=== PATIENT | female | born 1970 | race African-American/Black ===

== ENCOUNTER → 2016-07-26 | Outpatient (CLI) | payer OTHER ==
--- NOTE | 2016-07-26 07:59 | RAD ---
EXAM: Grayscale and color Doppler renal artery. HISTORY: Renal insufficiency. TECHNIQUE: Grayscale and color Doppler sonographic imaging of the renal arteries was spectral waveform analysis was performed. COMPARISON: None. FINDINGS: The right kidney measures 8.9 cm [id number] and the left kidney measures 9.6 cm [id number]. No solid or cystic renal lesion is seen. There is no hydronephrosis. The bladder is not assessed. The peak systolic velocities within the proximal, mid and distal right renal artery are 93 cm/s, 96 cm/s, and 94 cm/s, respectively. The peak systolic velocities within the proximal, mid and distal left renal artery are 94 cm/s, 73 cm/s, and 87 cm/s, respectively. IMPRESSION: 1. No Doppler evidence of hemodynamically significant stenosis within the renal arteries. 2. Slight decreased right renal size. This may be developmental, due to measurement error or mild atrophy.
--- NOTE | 2016-07-26 09:30 | RAD ---
PROCEDURE MRI lumbar spine without contrast HISTORY Low back pain with right leg radiculopathy for 2 weeks TECHNIQUE Sagittal and axial T1 and T2 and sagittal STIR images were acquired of the lumbar spine. Contrast: None COMPARISON None FINDINGS Lumbar vertebral body stature and AP alignment are preserved. Conus terminates at L2. Focus of marrow signal abnormality of the T12 vertebral body is likely a hemangioma. Otherwise there is no focal marrow edema. Intervertebral disc spaces are relatively preserved, mild disc desiccation L4-5. L2-3: Spinal canal and neural foramina are adequate. There is a hemangioma of the right L2 vertebral body. L3-4: Spinal canal and neural foramina are adequate. There is mild facet hypertrophic change. L4-5: There is mild facet hypertrophic change. Best seen on the T1 weighted images, there is shallow signal abnormality extending in the far right lateral recess and anterior right neural foramen on the order of 1.4 cm transverse by 0.5 cm AP by 0.9 cm cc. There is resultant moderate to severe narrowing of the right neural foramen greater proximally, contact of the ventral surface exiting right L4 nerve root. There is mild narrowing of the left neural foramen. Spinal canal is overall adequate. L5-S1: Spinal canal and the neural foramina are adequate. There is moderate to severe right and moderate left facet degenerative change. IMPRESSION 1. There is narrowing of the anterior right L4-5 neural foramen by apparent extrusion extending above the intervertebral disc space, better seen on the T1 weighted images. There is contact of the ventral surface of the exiting right L4 nerve root. There is no significant lumbar spinal stenosis. 2. There is multilevel lumbar facet degenerative change. Electronically signed by: Kaleb Flores MD (Jul 26, 2016 09:29:43)
== END | disposition home or self-care (01) ==
LOC: US 06:59
PROVIDERS: ATTEND Family Medicine
DX: N18.3 Chronic kidney disease, stage 3 (moderate) (principal); M54.16 Radiculopathy, lumbar region; M48.06 Spinal stenosis, lumbar region; M47.896 Other spondylosis, lumbar region; D18.09 Hemangioma of other sites
CPT/HCPCS: 72148; 93975

== ENCOUNTER → 2016-08-06 | Outpatient (CLI) | payer OTHER ==
[~2016-08-06] MED LIST: LISI1TAB3 PO; OXYC-323 PO
--- NOTE | 2016-08-07 00:43 | PAIN ---
DATE OF SERVICE: 08/06/2016 INITIAL CONSULTATION CHIEF COMPLAINT: Back and right lower extremity pain. HISTORY OF PRESENT ILLNESS: This is a 46-year-old female who presents with history of pain for about 3 weeks, suddenly increasing after she picked up her grandchildren from a bathtub leaning over forward and then picking them up, had a sudden increase in pain in the low back radiating to the right leg, mostly in the anterolateral thigh, medial thigh, into the medial lower leg, into the foot and into the big toe with numbness and decreased strength and pain is becoming much more noticeable over the past 3 weeks. The patient reports no significant pain in the low back or leg before this incident. The patient reports that it is much more weak with walking, much more painful with walking and standing, change in positions, wakens her from sleep at least 3-4 times at night, affects her ability to walk significantly. She is walking with a significant limp favoring her right lower extremity. Reports it does affect her bowel or bladder control and that she feels that she has greater urgency, but no actual loss of continence. The patient did have MRI scan of the lumbar spine showing narrowing of the anterior right L4-L5 neural foramen by apparent extrusion extending above the intervertebral disk space with contacts to ventral surface of the exiting right L4 nerve root without significant stenosis. The patient reports that it is much worse with standing, walking or putting all of her weight on her right side such as climbing stairs or stepping up of a curb, but no complete loss of function, but significant numbness and fatigability even after walking about 10-20 feet with the right leg compared to the left. PAST MEDICAL HISTORY: Significant for hypertension, arthritis, headaches, kidney stones and seasonal allergies. PREVIOUS SURGERIES: Include laparoscopic cholecystectomy, lithotripsy, hysterectomy and tubal ligation. CURRENT MEDICATIONS: Include Percocet and lisinopril. ALLERGIES: The patient has no known drug allergies. FAMILY HISTORY: Significant for no major medical problems or conditions that she is aware of. SOCIAL HISTORY: The patient does not drink alcohol, does not smoke, is single and lives in [facility]. REVIEW OF SYSTEMS: The patient's review of systems is positive for those items mentioned in the history of present illness. All systems reviewed and otherwise negative. It is complete, full and well documented on the patient's chart. PHYSICAL EXAMINATION: VITAL SIGNS: The patient's blood pressure is 198/110, pulse 59, respirations 18, temperature 98.3 degrees Fahrenheit, height is 5 feet 3 inches and weighs 169 pounds. GENERAL: The patient is awake, alert, oriented, appropriate, very pleasant demeanor. HEENT: Shows normocephalic, atraumatic. Extraocular movements are intact and symmetrical. Oral cavity shows mucous membranes are moist and pink. Dentition is intact. NECK: Shows anterior throat supple without palpable lymphadenopathy noted. Swallow reflex is symmetrical. Neck shows full rotation and motion of cervical spine, both laterally as well as extension and flexion without difficulty or tenderness. CHEST: Shows normal on inspection. Breath sounds are clear to auscultation bilaterally. HEART: Shows S1 and S2 clear. No murmurs are auscultated. ABDOMEN: The patient's abdomen is soft, nontender, nondistended. No palpable organomegaly is noted. No rebound or guarding demonstrated. It is normal on inspection. BACK: Shows spine grossly in midline, normal-appearing cervical lordotic curvature, thoracic kyphotic curvature, and lumbar lordotic curvature. No previous bruises, lesions, rashes or scars are noted. Lumbar paraspinous muscle shows some moderate tenderness to palpation only in the low lumbar distribution, diffusely, slightly more on the right than the left, but is symmetrical without evidence of atrophy, hypertrophy on inspection. No trigger points. No radiation of pain. No tenderness over the sacrum or the sacroiliac regions. No tenderness over the spinous processes throughout the lumbar spine. The patient does show good rotation and motion both laterally greater than 10 degrees right as well as extension greater than 10 degrees, forward flexion at 45 degrees without significant increase in pain. EXTREMITIES: Lower extremities show deep tendon reflexes at 1+ in the patellar and tendo calcaneus tendons, are equal. Motor exam is approximately 3-4 on a scale 5 in the right lower extremity and 5/5 on the left with dorsiflexion, extension, quadriceps and hamstring flexion. Peripheral pulses are 2+ in the posterior tibial and dorsalis pedis pulses. No peripheral edema is noted. No clubbing, no cyanosis. Lower extremities are warm and dry to touch, equal in color and appearance. Straight leg raise noted to be positive on the right at about 40 degrees, negative on the left and is decreased with knee flexion, but not completely relieved the right side. The patient is able to stand, stand on her toes, but loses balance quickly with putting all of her weight on her right leg, is walking with a significant limping gait favoring the right lower extremity significantly. The patient does not use any assistive devices such as canes or walkers and is holding on to wall and handrails as much as she can to steady herself. IMPRESSION: 1. This is a 46-year-old female with approximately3-week history of increasing pain after lifting grandchild from bathtub with radicular pain in the right lower extremity as noted and clear L4 distribution on the right side. 2. MRI scan as noted. 3. Hypertension. 4. Arthritis. PLAN: Options were discussed with the patient including conservative medical management, physical therapy, interventional techniques. She would like to pursue interventional techniques as she is already doing some stretching and strengthening exercises on her own, mostly stretching in the mornings, which says has not been helping the back or the leg pain significantly. We discussed lumbar epidural steroid injection using description as well as anatomical models to describe the procedure. We will wait for preauthorization with the patient's insurance provider and would try Medrol Dosepak in the meantime. The patient was given instruction as well as side effects to be aware with medication. Also discussed her blood pressure. She is on lisinopril, but has not taken it over the past 2 days. We discussed this as well and if it does not come down, to check with her primary care physician once again. She acknowledges this and will do so if necessary. The patient will follow up in approximately one week. We will plan on lumbar epidural steroid injection at that time. BROOKS TORRES MD DR: LORENZO/ritu JOB#: [id number] / [id number]
== END | disposition home or self-care (01) ==
LOC: PNCL 08:05
PROVIDERS: ATTEND Anesthesiology
DX: M54.2 Cervicalgia (principal); M79.604 Pain in right leg
CPT/HCPCS: 99214

== ENCOUNTER → 2016-08-22 | Outpatient (CLI) | payer OTHER ==
[2016-08-12 11:52] VITALS: BP 153/87
[~2016-08-22] MED LIST changes: +ACET325T9 PO; +CLON0.5T3 PO; +ISOS1TAB2 PO; +LISI1TAB7 PO; +METH-38 PO; +SENN1TAB7 PO
[2016-08-22 15:28] LABS: BASO % 1 % (0-3); EOS % 2 % (0-3); HEMATOCRIT 37.3 % (36.0-47.0); HEMOGLOBIN 12.3 g/dL (12.0-15.5); LYMPH # 2.3 x10^3/uL (1.0-4.8); LYMPH % 34 % (24-48); MEAN CORPUSCULAR HEMOGLOBIN 28 pg (25-35); MEAN CORPUSCULAR HGB CONC 33 g/dL (31-37); MEAN CORPUSCULAR VOLUME 85 fL (79-100); MONO % 3 % (0-9); NEUT % 60 % (31-73); PLATELET COUNT 401 x10^3/uL (140-400); RED BLOOD COUNT 4.37 x10^6/uL (3.50-5.40); RED CELL DISTRIBUTION WIDTH 13.7 % (11.5-14.5); WHITE BLOOD COUNT 6.7 x10^3/uL (4.0-11.0)
[2016-08-22 15:50] LABS: ALBUMIN 3.6 g/dL (3.4-5.0); ALBUMIN/GLOBULIN RATIO 0.8 (1.0-1.7); CREATININE 1.1 mg/dL (0.6-1.0); GFR 64.4; POTASSIUM 3.2 mmol/L (3.5-5.1); TOTAL BILIRUBIN 0.4 mg/dL (0.2-1.0)
== END | disposition home or self-care (01) ==
LOC: SURGPAT 13:21
PROVIDERS: ATTEND Neurological Surgery
DX: M51.26 Other intervertebral disc displacement, lumbar region (principal); M48.06 Spinal stenosis, lumbar region
CPT/HCPCS: 36415; 80053; 85027; 85610; 85730; 87641

== ENCOUNTER 2016-08-28 06:57 | Observation (INO) | payer OTHER ==
[~2016-08-28] VITALS: Ht 160 cm; Wt 77.6 kg
[2016-08-28] VITALS (8 sets, daily range): BP systolic 108–161; BP diastolic 57–90
[~2016-08-28 06:57] MED LIST changes: +BACITRACIN 50,000 UNIT in IV NORMAL SALINE 1000ML BAG 1,000 ML IRR ONE; +CEFAZOLIN 2GM PREMIX 50 ML IV ONE; -METH-38 PO; -SENN1TAB7 PO
[2016-08-28] MEDS ORDERED: ONDANSETRON PF 4 MG/2 ML VIAL. IV PRN ×2 (07:00→14:30)
[2016-08-28] MEDS ORDERED: FENTANYL PF 100 MCG/2 ML VIAL. IV PRN ×3 (07:00→14:30)
[2016-08-28] MEDS ORDERED: IV RINGERS,LACTATED 1000ML 1,000 ML IV SCH (07:00)
[2016-08-28] MEDS ORDERED: PROCHLORPERAZINE 10 MG/2 ML VIAL. IV PRN (07:00)
[2016-08-28] MEDS ORDERED: HYDROMORPHONE 2 MG/ML VIAL. IV PRN (07:00)
[2016-08-28] MEDS ORDERED: LIDOCAINE 1% 1 ML SYRINGE. ID PRN (07:00)
[2016-08-28] MEDS ORDERED: ACETAMINOPHEN INTRAVENOUS 100 ML IV ONE ×2 (07:25→07:30)
[2016-08-28] MEDS ORDERED: CEFAZOLIN 2GM PREMIX 50 ML IV PRN (08:00)
[2016-08-28] MEDS ORDERED: REMIFENTANIL 2 MG VIAL. IV ONE (08:13)
[2016-08-28] MEDS ORDERED: FENTANYL PF 100 MCG/2 ML VIAL. ONE (08:13)
[2016-08-28] MEDS ORDERED: MIDAZOLAM HCL 2 MG/2 ML VIAL. ONE (08:13)
[2016-08-28] MEDS ORDERED: ROCURONIUM 50 MG/5 ML VIAL. ONE (08:14)
[2016-08-28] MEDS ORDERED: GLYCOPYRROLATE 1 MG/5 ML VIAL. ONE (08:14)
[2016-08-28] MEDS ORDERED: DEXAMETHASONE SOD PHOS 20 MG/5 ML VIAL. ONE (08:15)
[2016-08-28] MEDS ORDERED: PROPOFOL 20 ML IV ONE (08:15)
[2016-08-28] MEDS ORDERED: LIDOCAINE 2% 100 MG/5 ML DISP.SYRIN. ONE (08:15)
[2016-08-28] MEDS ORDERED: PROPOFOL 50 ML IV ONE ×2 (08:15→10:04)
[2016-08-28] MEDS ORDERED: DESFLURANE > 120 MINUTES IH ONE (08:15)
[2016-08-28] MEDS ORDERED: PHENYLEPHRINE 10 MG/ML VIAL. ONE (08:15)
[2016-08-28] MEDS ORDERED: ONDANSETRON PF 4 MG/2 ML VIAL. ONE (08:15)
[2016-08-28] MEDS ORDERED: GELATIN SPONGE SIZE 100. ONE (08:17)
[2016-08-28] MEDS ORDERED: THROMBIN 20,000 UNIT SPRAY.SYRN KIT TP ONE (08:17)
[2016-08-28] MEDS ORDERED: LIDOCAINE 1%/EPI 1:100,000 20 ML VIAL. ONE (08:17)
[2016-08-28] MEDS ORDERED: BUPIVACAINE 0.5% 50 ML VIAL. INJ ONE (08:30)
--- NOTE | 2016-08-28 11:14 | PDOC ---
BRIEF OPERATIVE NOTE Date: Aug 28, 2016 Pre-Op Diagnosis lumbar disk herniation, lumbar radiculopathy, weakness Post-Op Diagnosis same Procedure Performed right L4-5 hemilaminotomy with discectomy Surgeon Suri Flask Pusher none Anesthesia Type: General Blood Loss 25mL Specimens Obtained disk and decompression Findings disk herniation right lateral recess into foramen at L4-5 Complications none apparent Additional Remarks neuromonitoring remained at least baseline throughout the procedure OUSMANE ASCENCIO MD Aug 28, 2016 11:14
--- NOTE | 2016-08-28 11:20 | DISCH ---
DISCHARGE INSTRUCTIONS Condition on Discharge Condition on Discharge: Stable Activity After Discharge Activity Instructions for Disc: Avoid exertion, Progressive ambulation Bathing Instructions: Shower-keep dressing dry, No Tub Bath until see Lifting Instructions after Dis: No pulling or pushing, Do not lift >10 pounds, Add. restrict see below (avoid strenuous activity, avoid excess twisting or bending, no lifting more than 10lbs) Wound Incision Care Wound/Incision Care: Other, see below (may remove dressing day 3 after surgery , may cover with breathable gauze and tape if needed thereafter; keep incision clean and dry; do no soak, scrub, or submerge incision) Contacting the after DC Call your doctor for: Concerns you may have Follow-Up Follow up with: Dr. Ascencio in two weeks [phone] OUSMANE ASCENCIO MD Aug 28, 2016 11:20
[2016-08-28] MEDS: FENTANYL PF 100 MCG/2 ML VIAL. IV PRN ×4 (11:33→11:57)
[2016-08-28] MEDS: MORPHINE SULFATE 2 MG/ML DISP.SYRIN. IV PRN ×4 (12:06→13:36)
[2016-08-28] MEDS ORDERED: OXYCODONE/APAP 5/325 TABLET. PO ONE (13:15)
[2016-08-28] MEDS ORDERED: METH-38 PO (13:24)
[2016-08-28] MEDS ORDERED: OXYC-323 PO (13:24)
[2016-08-28] MEDS ORDERED: SENN1TAB7 PO (13:25)
[2016-08-28] MEDS ORDERED: MAGNESIUM HYDROXIDE 2,400 MG/30 ML ORAL.SUSP. PO PRN (14:30)
[2016-08-28] MEDS ORDERED: CALCIUM CARBONATE 500 MG TAB.CHEW PO PRN (14:30)
[2016-08-28] MEDS ORDERED: OXYCODONE/APAP 5/325 TABLET. PO PRN ×2 (14:30)
[2016-08-28] MEDS ORDERED: DIPHENHYDRAMINE 50 MG/ML VIAL IV PRN (14:30)
[2016-08-28] MEDS ORDERED: ZOLPIDEM 5 MG TABLET. PO PRN (14:30)
[2016-08-28] MEDS ORDERED: DIPHENHYDRAMINE HCL 25 MG CAPSULE PO PRN (14:30)
[2016-08-28] MEDS ORDERED: 0.9 % SODIUM CHLORIDE 10 ML DISP.SYRIN. IV PRN (14:30)
[2016-08-28] MEDS ORDERED: MAG HYDROX/ALUMINUM HYDROX/SMC 30 ML ORAL.SUSP PO PRN (14:30)
[2016-08-28] MEDS ORDERED: NALOXONE 0.4 MG/ML VIAL. IV PRN (14:30)
[2016-08-28] MEDS: CALCIUM CARB/VIT D3 500/200 TABLET PO SCH (17:05)
[2016-08-28] MEDS: ISOSORBIDE DINITRATE 10 MG TABLET. PO SCH ×2 (17:05→21:10)
[2016-08-28] MEDS: HYDRALAZINE 25 MG TABLET PO SCH ×2 (17:05→21:11)
[2016-08-28] MEDS: FERROUS SULFATE 325 MG TABLET PO SCH (17:05)
--- NOTE | 2016-08-28 18:02 | OP ---
DATE OF SURGERY: 08/28/2016 SURGEON: Corbin Ascencio M.D. LICENSED DISPENSING OPTICIAN: None. PREOPERATIVE DIAGNOSES: Lumbar disk herniation, lumbar radiculopathy weakness. PROCEDURE: Right lumbar 4-5 hemilaminotomy with diskectomy with intraoperative neuro monitoring. ANESTHESIA: General. COMPLICATIONS: None intraprocedurally. INDICATIONS FOR THE PROCEDURE: The patient is a 46-year-old female with some right lower extremity pain with some developing weakness in her ankle who was noted to have a lumbar disk herniation in the right lateral recess at lumbar 4-5 extending to the region of the neural foramen. Based on her complaints, physical exam findings, radiography was felt appropriate that the right lumbar 4-5 decompression diskectomy would be beneficial. Please refer to the patient chart for additional details. DESCRIPTION OF PROCEDURE: After informed consent was obtained, the patient was brought into the operating room. She was placed under general anesthesia. She was placed in the prone position on the Erick frame. All pressure points were checked and padded appropriately. Neuro monitoring was instituted and baseline potentials were obtained. The lumbar region was prepped and draped in the usual sterile fashion. Fluoroscopy was utilized to localize an appropriate incision location. A vertical incision centered over the region of lumbar 4-5 was made with a 10 blade scalpel. Monopolar electrocautery was utilized to dissect the avascular midline to the spinous processes of lumbar 4 and lumbar 5 and rightward across the lamina at these locations. Level was again verified with fluoroscopy prior to the initiation of decompression a right hemilaminotomy was performed at lumbar 4-5 utilizing pneumatic drill as well as Kerrison rongeur. The underlying ligament was dissected free from the thecal sac and removed with a Kerrison rongeur. Dissection was carried out in lateral recess and the bulging annulus was identified, the nerve hooks gently retracted medially and a small annulotomy was performed at the disk space at lumbar 4-5. This material emerged under some pressure at this location, this material was subsequently removed in a piecemeal fashion utilizing pituitary rongeur, gentle dissection with a blunt nerve hook and a [place] was utilized to tease disk material posterolaterally, again this was subsequently removed with pituitary rongeur. Some of the disk material was noted to have ____ slightly cephalad, this was teased out from under the annulus with a nerve hook and removed with pituitary rongeur. Upon completion of decompression and diskectomy, the neural elements were noted to be very well decompressed. This was verified with direct visualization as well as gentle palpation with a [place] and a Blanton ball. Pristine hemostasis was achieved with FloSeal, cottonoids and some use of bipolar electrocautery. The wound was generously irrigated with antibiotic irrigation prior to final closure, the muscles and fascia were then reapproximated with 0 Vicryl in simple interrupted fashion. Subcutaneous tissues were reapproximated with 2-0 Vicryl in interrupted inverted fashion and the skin was reapproximated with 4-0 Vicryl in a running subcuticular fashion. Mastisol and Steri-Strips were applied and the wound was dressed with Telfa and Tegaderm. At the end of procedure, all needle and sponge counts correct x 2. Neuro monitoring remained at least at baseline throughout the entire duration of the procedure. There were no intraprocedural complications apparent. The patient was subsequently extubated in the operating room and taken to recovery in stable condition. CORBIN ASCENCIO MD DR: ELVA/ritu JOB#: [id number] / [id number]
[2016-08-28] MEDS ORDERED: SENNOSIDES/DOCUSATE 8.6/50MG TABLET. PO SCH (21:00)
[2016-08-28] MEDS ORDERED: HYDRALAZINE HCL PO SCH (21:00)
[2016-08-28] MEDS ORDERED: ISOSORB DINIT PO SCH (21:00)
[2016-08-28] MEDS: DOCUSATE SODIUM 100 MG CAPSULE PO SCH (21:08)
[2016-08-28] MEDS: METHOCARBAMOL 750 MG TABLET PO SCH (21:08)
[2016-08-28] MEDS: SENNOSIDES/DOCUSATE 8.6/50MG TABLET. PO SCH (21:08)
[2016-08-28] MEDS: CLONAZEPAM 0.5 MG TABLET PO SCH (21:08)
[2016-08-28] MEDS: ACETAMINOPHEN 325 MG TABLET. PO PRN (21:11)
[2016-08-29 03:20] VITALS: BP 125/69
[2016-08-29] MEDS: ACETAMINOPHEN 325 MG TABLET. PO PRN (03:35)
[2016-08-29 06:38] VITALS: BP 138/76
[2016-08-29] MEDS: DOCUSATE SODIUM 100 MG CAPSULE PO SCH (08:33)
[2016-08-29] MEDS: CALCIUM CARB/VIT D3 500/200 TABLET PO SCH (08:33)
[2016-08-29] MEDS: METHOCARBAMOL 750 MG TABLET PO SCH (08:33)
[2016-08-29] MEDS: SENNOSIDES/DOCUSATE 8.6/50MG TABLET. PO SCH (08:33)
[2016-08-29] MEDS: FERROUS SULFATE 325 MG TABLET PO SCH (08:33)
[2016-08-29] MEDS: CLONAZEPAM 0.5 MG TABLET PO SCH (08:35)
[2016-08-29 08:36] VITALS: BP 138/76
[2016-08-29] MEDS: ISOSORBIDE DINITRATE 10 MG TABLET. PO SCH (08:36)
[2016-08-29] MEDS: HYDRALAZINE 25 MG TABLET PO SCH (08:36)
[2016-08-29] MEDS ORDERED: HYDROCHLOROTHIAZIDE 25 MG TABLET PO SCH (09:00)
[2016-08-29] MEDS ORDERED: MULTIVITAMIN with MINERAL TABLET. PO SCH (09:00)
[2016-08-29] MEDS ORDERED: NON FORMULARY ITEM (Lisinopril/Hydrochlorothiazide (Lisinopril-Hctz 20-25 Mg Tab) 1 TAB) PO SCH (09:00)
[2016-08-29] MEDS ORDERED: LISINOPRIL 20 MG TABLET PO SCH (09:00)
--- NOTE | 2016-08-29 09:23 | PDOC ---
SUBJECTIVE Subjective Reports resolution of right leg pain and increased ankle strength. Working with therapy. Denies acute complaints this AM. OBJECTIVE Vital Signs Vital Signs Date Time Temp Pulse Resp B/P Pulse Ox O2 Delivery O2 Flow Rate FiO2 08/29/16 08:36 82 138/76 08/29/16 08:36 82 138/76 08/29/16 08:34 82 138/76 08/29/16 06:38 98.5 82 18 138/76 97 Room Air 98.5 08/29/16 03:20 98.5 78 18 125/69 97 Room Air 98.5 08/28/16 23:00 98.6 97 18 108/57 96 Room Air 98.6 08/28/16 21:11 82 149/72 08/28/16 21:10 82 149/72 08/28/16 19:50 97.4 85 18 126/79 95 Room Air 97.4 08/28/16 19:45 Room Air 10.0 08/28/16 18:20 97.8 60 20 161/84 98 Room Air 97.8 08/28/16 18:00 88 16 133/78 08/28/16 17:05 91 133/84 08/28/16 17:05 91 133/84 08/28/16 17:04 16 08/28/16 17:00 91 16 133/84 08/28/16 16:00 68 16 130/83 08/28/16 15:30 Room Air 08/28/16 15:30 67 16 161/90 08/28/16 15:03 97.6 62 16 142/82 96 97.6 08/28/16 14:01 61 16 138/80 96 Room Air 08/28/16 13:33 65 13 121/81 93 Room Air 08/28/16 13:18 77 11 158/88 93 Room Air 08/28/16 13:03 84 16 140/87 95 Room Air 08/28/16 12:48 97.2 62 18 127/86 95 Room Air 97.2 08/28/16 12:33 66 14 155/89 94 Room Air 08/28/16 12:18 66 16 153/86 95 Room Air 08/28/16 12:17 16 95 Room Air 08/28/16 12:08 Room Air 08/28/16 12:06 18 95 Room Air 08/28/16 12:03 80 16 140/91 95 Room Air 08/28/16 11:57 18 99 Room Air 08/28/16 11:49 100 Room Air 10.0 08/28/16 11:48 74 18 147/89 99 Room Air 08/28/16 11:38 18 100 Room Air 10.0 08/28/16 11:33 62 16 159/95 100 Simple Mask 10 08/28/16 11:33 20 96 Simple Mask 10.0 08/28/16 11:18 97.5 89 14 152/95 100 Simple Mask 10 97.5 08/28/16 11:18 Mask 10 I & O Intake and Output 08/29/16 07:00 Intake Total 1760 ml Output Total 2175 ml Balance -415 ml Intake Oral 610 ml IV Total 1150 ml Output Urine Total 2150 ml Estimated Blood Loss 25 ml # Bowel Movements 1 PHYSICAL EXAM Physical Exam AAOx4, NAD, dressing with some ss stain, flat, POWERS now 5/5 in ankle, sensation intact LT ASSESSMENT/PLAN Assessment/Plan POD1 lumbar discectomy (right L4-5) -d/c home today with standard activity restrictions -follow up two weeks [phone] Problems: OUSMANE ASCENCIO MD Aug 29, 2016 09:23
--- NOTE | 2016-08-29 12:38 | PATHOLOGY ---
PATHOLOGY REPORT * * * * * * * * FINAL DIAGNOSIS: Segments of fibrocartilaginous, adipose, and skeletal muscle tissue and bone, right L4-5 disc and decompression: - Degenerative changes of fibrocartilaginous tissue. COMMENT: There is no evidence of an acute inflammatory process or malignancy. (JPM:csd; d/t: 08/29/2016) REPORT ELECTRONICALLY SIGNED BY: Azam Paez M.D. DATE/TIME: 08/29/2016 12:38 * * * * * * * * GROSS PATHOLOGY: Received in formalin labeled "Edson Rey - right lumbar 4-5 disc and decompression," are multiple segments of kee white rubbery and gritty tissue admixed with possible bone measuring 3.5 x 2.5 x 0.3 cm in aggregate dimensions. The tissue is submitted entirely in cassette A1, following decalcification. (TTL:JPM:csd; 08/28/2016) INITIAL CPT CODE(S): A; 65734, 47330 Professional services performed [place] [place] [address] Technical services performed by [facility] at [address] [place] [address] [address], [place] [address]. SPECIMEN(S) RECEIVED: A.Right lumbar 4-5 disc and decompression CLINICAL HISTORY: Lumbar herniated disc, lumbar spondylosis, low back pain, lumbar radiculopathy PATIENT: EDSON REY /AGE: 1105/31/1970 (Age: 46) PATIENT #: [id number] ALT CASE #: SPECIMEN COLLECTION DATE: 08/28/2016 SPECIMEN RECEIVED DATE: 08/28/2016 [facility] - [address] [place] [address] - PHONE: [phone] * * * END OF REPORT * * *
== END 2016-08-29 11:45 | disposition home or self-care (01) ==
LOC: SURG 06:57 → 4 SOUTHEST 14:15
PROVIDERS: ADMIT Neurological Surgery; ATTEND Neurological Surgery
DX: M51.16 Intervertebral disc disorders with radiculopathy, lumbar region (principal); R53.1 Weakness
CPT/HCPCS: 36415; 63030; 76000; 84132; 97161; 97165; 97530; G0378; G0379; G8978; G8979; G8980; G8987; G8988; G8989; J0131; J0690; J0780; J1100; J2250; J2270; J2405; J2704; J3010; J3490; J7030; 88304; 88311

== ENCOUNTER 2016-11-09 09:26 | Emergency (ER) | payer OTHER ==
[~2016-11-09 09:26] MED LIST changes: -BACITRACIN 50,000 UNIT in IV NORMAL SALINE 1000ML BAG 1,000 ML IRR ONE; -CEFAZOLIN 2GM PREMIX 50 ML IV ONE; +METH-38 PO; +SENN1TAB7 PO
--- NOTE | 2016-11-09 09:36 | PHYS DOC ---
Past Medical History Past Medical History: Hypertension Additional Past Medical Histor: L4 and L5 herniated disc, osteoporosis Past Surgical History: Cholecystectomy, Hysterectomy Additional Past Surgical Histo: lithotripsy Alcohol Use: Occasionally Drug Use: None Adult General HPI HPI Patient is a 46 year old female with history of hypertension who presents today with moderate low back pain that began today while at work. Patient states she was sitting at her desk when she developed severe back pain. Patient denies the pain radiating to bilateral lower extremities. Denies any loss of bowel bladder function. She states she had L4-L5 lumbar laminectomy done on August [address] Mccord. She states she was discharged with oxycodone which she still has. She states she only takes oxycodone at night. Patient denies any trauma. Review of Systems Review of Systems Constitutional: Denies fever or chills [] Eyes: Denies change in visual acuity, redness, or eye pain [] GI: Denies abdominal pain, nausea, vomiting, bloody stools or diarrhea [] : Denies dysuria or hematuria [] Musculoskeletal:back pain Integument: Denies rash or skin lesions [] Neurologic: Denies headache, focal weakness or sensory changes [] Endocrine: Denies polyuria or polydipsia [] Current Medications Current Medications Current Medications Medications (Trade) Dose Ordered Sig/Jason Start Time Stop Time Status Last Admin Dose Admin Cyclobenzaprine HCl (Flexeril) 10 mg 1X ONCE 11/09/16 09:30 11/09/16 09:31 UNV Oxycodone/ Acetaminophen (Percocet 5/325) 2 tab 1X ONCE 11/09/16 09:30 11/09/16 09:31 UNV Allergies Allergies Allergies Coded Allergies Type Severity Reaction Last Updated Verified No Known Drug Allergies 08/28/16 No Physical Exam Physical Exam Constitutional: Well developed, well nourished, no acute distress, non-toxic appearance. [] Abdomen: Bowel sounds normal, soft, no tenderness, no masses, no pulsatile masses. [] Skin: Warm, dry, no erythema, no rash. [] Back: Well-healing surgical incision noted on the lumbar spine. Diffuse paraspinal muscle tenderness to bilateral low lumbar region, no midline tenderness, no CVA tenderness. [] Extremities: No tenderness, no cyanosis, no clubbing, ROM intact, no edema. [] Neurologic: Alert and oriented X 3, normal motor function, normal sensory function, no focal deficits noted. [] Psychologic: Affect normal, judgement normal, mood normal. [] EKG EKG [] Radiology/Procedures Radiology/Procedures [] Course & Med Decision Making Course & Med Decision Making Pertinent Labs and Imaging studies reviewed. (See chart for details) Patient is in the ED with exacerbation of low back pain. She had surgery on her lumbar spine on the August 2016. She already has oxycodone at home but she cannot take it when she is at work like today. She was given oxycodone in the ED and Flexeril. Discharged with instructions to follow-up with her own PCP and neurosurgeon. Dragon Disclaimer Dragon Disclaimer This electronic medical record was generated, in whole or in part, using a voice recognition dictation system. Departure Departure Impression: Primary Impression: Back pain Disposition: HOME, SELF-CARE Condition: STABLE Referrals: YUNIOR BROOKS MD (PCP) follow up with your primary doctor or your neurosurgeon as soon as you can Patient Instructions: Back Pain, Adult Additional Instructions: You were seen for exacerbation of chronic back pain. Take your pain medicines as prescribed by your doctor. Follow-up with your doctor as soon as you can. Come back to the ED if symptoms worsen. Problem Qualifiers Primary Impression: Back pain Back pain location: low back pain Chronicity: chronic Back pain laterality : bilateral Sciatica presence: without sciatica Qualified Code: M54.5 - Low back pain VIKRAM RAMOS APRN Nov 09, 2016 09:36
[2016-11-09] MEDS ORDERED: OXYCODONE/APAP 5/325 TABLET. PO ONE (09:45)
[2016-11-09] MEDS ORDERED: CYCLOBENZAPRINE 10 MG TABLET. PO ONE (09:45)
== END 2016-11-09 10:13 | disposition home or self-care (01) ==
LOC: ER 09:26
DX: M54.5 Low back pain (principal); I10 Essential (primary) hypertension; M81.0 Age-related osteoporosis without current pathological fracture; Z98.890 Other specified postprocedural states; Z79.891 Long term (current) use of opiate analgesic
CPT/HCPCS: 99283

== ENCOUNTER → 2021-06-30 | Outpatient (CLI) | payer OTHER ==
[~2021-06-30] MED LIST changes: +CLON-77 PO; -CLON0.5T3 PO; -LISI1TAB3 PO; +LISI1TAB35 PO; +LISI1TAB39 PO; -LISI1TAB7 PO; -OXYC-323 PO; +OXYC1TAB15 PO; +SENN-161 PO; -SENN1TAB7 PO
--- NOTE | 2021-06-30 10:55 | RAD ---
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 Technique: Noncontrast CT of the abdomen. Findings: Lung bases are clear. The liver, pancreas and spleen are unremarkable. Status post cholecystectomy. L eft renal 6 mm nephrolith. No hydronephrosis. There is no adrenal nodule or thickening identified. Stomach is unremarkable. Visualized small bowel is within normal limits. Multiple prominent lymph nod es in the right lower quadrant including 9 mm rounded lymph node (axial image 99) and 8 mm lymph node (axial 134). Calcified nodule anterior to the transverse colon may represent calcified epiploic appe ndage. Pars interarticularis defects at L4 with mild anterolisthesis of L4 on L5. Multilevel lumbar f acet hypertrophy. Impression: 1. No adrenal mass, nodule or thickening identified. 2. Abnormal prominence of the right lower quadrant lymph nodes measuring up to 9 mm short axis. Matt elate for lymphoproliferative disorder. Recommend CT abdomen and pelvis with contrast in 3 months for further evaluation. 3. Nonobstructing left upper pole nephrolithiasis. 4. Mild isthmic anterolisthesis of L4 on L5. ------ Exposure: One or more of the following individualized dose reduction techniques were utilized for thi s examination: 1. Automated exposure control 2. Adjustment of the mA and/or kV according to patient size 3. Use of iterative reconstruction technique. Electronically signed by: Jered Perdomo MD (06/30/2021 10:52 AM) [facility]
== END ==
LOC: CT 09:47
PROVIDERS: ATTEND Family Medicine
DX: N20.0 Calculus of kidney (principal); E26.01 Conn's syndrome; M47.816 Spondylosis without myelopathy or radiculopathy, lumbar region; M43.16 Spondylolisthesis, lumbar region; Z90.49 Acquired absence of other specified parts of digestive tract
CPT/HCPCS: 74150